=== PATIENT | female | born 1990 | race Caucasian/White ===

== ENCOUNTER 2020-06-03 08:52 | Emergency (ER) | payer BC ==
[~2020-06-03] VITALS: Ht 160 cm; Wt 75.0 kg
[2020-06-03 08:52] VITALS: BP 147/85
== END 2020-06-03 09:14 | disposition home or self-care (01) ==
LOC: EEVIPCON 08:52 → ER 08:52
DX: R50.9 Fever, unspecified (principal); Z88.2 Allergy status to sulfonamides; Z88.5 Allergy status to narcotic agent
CPT/HCPCS: 36415; 99282